=== PATIENT | female | born 1990 | race Caucasian/White ===

== ENCOUNTER 2017-03-06 22:27 | Emergency (ER) | payer MEDICAID ==
[~2017-03-06] VITALS: Ht 175.3 cm; Wt 65.8 kg
[2017-03-06] MEDS ORDERED: ONCE DAILY1 EACH PO (22:54)
[2017-03-07] MEDS ORDERED: CYCLOBENZAPRINE10 MG PO (00:44)
[2017-03-07] MEDS ORDERED: TRAMADOL HCL50 MG PO (00:44)
== END 2017-03-07 01:07 | disposition home or self-care (01) ==
LOC: ED 22:27
DX: S39.012A Strain of muscle, fascia and tendon of lower back, initial encounter (principal); M54.42 Lumbago with sciatica, left side; F17.200 Nicotine dependence, unspecified, uncomplicated; Z91.040 Latex allergy status; Z79.899 Other long term (current) drug therapy; W17.89XA Other fall from one level to another, initial encounter; Y93.51 Activity, roller skating (inline) and skateboarding
CPT/HCPCS: 72100; 99283

== ENCOUNTER 2018-10-08 20:11 | Emergency (ER) | payer OTHER ==
[~2018-10-08] VITALS: Ht 175.3 cm; Wt 61.2 kg
[~2018-10-08 20:11] MED LIST: CYCLOBENZAPRINE10 MG PO; KEFLEX500 MG PO; ONCE DAILY1 EACH PO; PYRIDIUM200 MG PO; TRAMADOL HCL50 MG PO
--- OUTSIDE RECORDS SUMMARY | 2018-10-08 20:14 | XMS ---
PreManage Notification: JOSH IRIZARRY Security Provider Relations Coordinator Events No recent Security Events currently on file CRITERIA MET - [facility] PROVIDERS NAINA GRIMES Primary Care Current PHONE: Unknown RAFFAELE ARANDA Primary Care 07/29/2005-Current PHONE: [phone] TERESITA SHAFFER Primary Care Current PHONE: [phone] Alecia has no Care Guidelines for this patient. E.D. VISIT COUNT (12 MO.) 2 JOS[facility] [place] TOTAL 2 NOTE: Visits indicate total known visits. ED/UCC VISIT TRACKING (12 MO.) 10/08/2018 20:11 [facility] TYPE: Emergency COMPLAINT: - POSS SEIZURE 10/28/2017 20:46 [facility] TYPE: Emergency COMPLAINT: - POSS UTI DIAGNOSES: - Other half-way (current) drug therapy - Nicotine dependence, unspecified, uncomplicated - Dysuria - Latex allergy status - Urinary tract infection, site not specified INPATIENT VISIT TRACKING (12 MO.) No inpatient visits to display in this time frame [email or web address]
[2018-10-08] MEDS ORDERED: HYDROXYZINE HCL25 MG PO (20:21)
[2018-10-08] MEDS ORDERED: BUPRENORPHIN-N1 EACH SL (20:22)
[2018-10-08] MEDS ORDERED: SERTRALINE HCL100 MG PO (20:22)
[2018-10-08] MEDS ORDERED: ZOFRAN4 MG PO (23:21)
[2018-10-08] MEDS ORDERED: KEFLEX500 MG PO (23:21)
== END 2018-10-08 23:42 | disposition home or self-care (01) ==
LOC: ED 20:11
DX: R56.9 Unspecified convulsions (principal); N39.0 Urinary tract infection, site not specified; D69.6 Thrombocytopenia, unspecified; F32.9 Major depressive disorder, single episode, unspecified; F17.200 Nicotine dependence, unspecified, uncomplicated; Z91.040 Latex allergy status; Z79.899 Other long term (current) drug therapy
CPT/HCPCS: 70450; 80053; 81001; 84703; 85025; 96374; 99285-25; G0480; J2405